=== PATIENT | female | born 1940 | race African-American/Black ===

== ENCOUNTER 2017-11-04 06:32 | Day surgery (SDC) | payer MEDICARE ==
[~2017-11-04 06:32] MED LIST: NACL 0.9% 1000 ML 1,000 ML IV SCH
[2017-11-04 07:22] LABS: Basophils # (Auto) 0.1 K/mm3 (0.0-0.1); Basophils % (Auto) 0.9 % (0.0-1.8); Eosinophils # (Auto) 0.9 K/mm3 (0.0-0.4); Eosinophils % (Auto) 8.7 % (0.0-4.3); Lymphocytes # (Auto) 2.6 K/mm3 (1.2-5.4); Lymphocytes % (Auto) 25.4 % (13.4-35.0); Mean Corpuscular HGB Conc 30 % (30-34); Monocytes # (Auto) 0.8 K/mm3 (0.0-0.8); Monocytes % (Auto) 8.2 % (0.0-7.3); Platelet Count 193 K/mm3 (140-440); Red Blood Count 5.31 M/mm3 (3.65-5.03); Red Cell Distribution Width 18.3 % (13.2-15.2)
[2017-11-04 07:23] LABS: Hematocrit 36.2 % (30.3-42.9); Mean Corpuscular Hemoglobin 21 pg (28-32); Mean Corpuscular Volume 68 fl (79-97)
[2017-11-04] MEDS ORDERED: XYLOCAINE 1%/ EPI 1:100,000 INFILTRATI ONE (07:31)
[2017-11-04] MEDS ORDERED: NACL 0.9% 500 ML 0 ML ONE (07:31)
[2017-11-04] MEDS ORDERED: MARCAINE 0.5% INFILTRATI ONE (07:32)
[2017-11-04] MEDS ORDERED: HEPARIN 10,000 UNITS/10 ML ONE (07:32)
[2017-11-04] MEDS ORDERED: XYLOCAINE MPF 2% ONE (07:33)
[2017-11-04] MEDS ORDERED: SUBLIMAZE ONE (07:34)
[2017-11-04] MEDS ORDERED: DIPRIVAN 10 MG/ML IV ONE (07:34)
[2017-11-04 07:41] VITALS: BP 191/78
[2017-11-04 07:44] LABS: Calcium 8.9 mg/dL (8.4-10.2)
[2017-11-04] MEDS ORDERED: SODIUM BICARBONATE ONE (07:45)
--- NOTE | 2017-11-04 08:07 | Anesthesia Consultation ---
Anesthesia Consult and Med Hx Date of service: 11/04/17 - Airway Anesthetic Teeth Evaluation: Dentures ROM Head & Neck: Adequate Mental/Hyoid Distance: Adequate Mallampati Class: Class II Intubation Access Assessment: Probably Good - Pulmonary Exam CTA: Yes - Cardiac Exam Anesthetic Concerns: irregular - Pre-Operative Health Status ASA Pre-Surgery Classification: ASA4 Proposed Anesthetic Plan: MAC - Pre-Anesthesia Comment Pre-Anesthesia Comments: PONV - Pulmonary Hx Asthma: Yes COPD: Yes - Cardiovascular System Hx Hypertension: Yes Hx Valvular Heart Disease: Yes (MV prolapse) Hx Heart Murmur: Yes - Central Nervous System CVA: Yes (2005-) - Gastrointestinal Hx Ulcer: Yes Hx Gastroesophageal Reflux Disease: Yes (small ulcer) - Endocrine Hx Renal Disease: Yes Hx End Stage Renal Disease: Yes - Hematic Hx Anemia: Yes
--- NOTE | 2017-11-04 08:10 | Anesthesia Day of Surgery ---
Anesthesia Day of Surgery - Day of Surgery Patient Examined: Yes Patient H&P Reviewed: Yes Patient is NPO: Yes
== END 2017-11-04 08:20 | disposition home or self-care (01) ==
LOC: OR 06:32
PROVIDERS: ATTEND Surgery Vascular Surgery
DX: I12.0 Hypertensive chronic kidney disease with stage 5 chronic kidney disease or end stage renal disease (principal); N18.6 End stage renal disease; J44.9 Chronic obstructive pulmonary disease, unspecified; D64.9 Anemia, unspecified; E78.00 Pure hypercholesterolemia, unspecified; K21.9 Gastro-esophageal reflux disease without esophagitis; Z98.890 Other specified postprocedural states; Z86.73 Personal history of transient ischemic attack (TIA), and cerebral infarction without residual deficits; Z99.2 Dependence on renal dialysis; Z98.42 Cataract extraction status, left eye; Z98.41 Cataract extraction status, right eye; Z53.8 Procedure and treatment not carried out for other reasons; Z79.899 Other long term (current) drug therapy; Z88.0 Allergy status to penicillin; Z88.8 Allergy status to other drugs, medicaments and biological substances
CPT/HCPCS: 36415; 80048; 85025; J7030; J1644; J2704; J3010; J7040